=== PATIENT | female | born 1975 | race Caucasian/White ===

== ENCOUNTER 2023-01-12 11:14 | Emergency (ER) | payer OTHER ==
[2023-01-12 11:34] VITALS: BP 134/73; PULSE 58; RESP 18; TEMP 98.4; BMI 28.3
[2023-01-12] MEDS ORDERED: EMTRICITABINE 200MG/TENOFOVIR 300MG PO ONE (12:02)
[2023-01-12] MEDS ORDERED: TETANUS AND DIPHTHERIA TOXOID 0.5 ML DISP.SYRIN IM ONE (12:02)
[2023-01-12] MEDS ORDERED: RALTEGRAVIR POTASSIUM 400 MG TAB PO ONE (12:02)
[2023-01-12] MEDS ORDERED: HIV POST EXPOSURE PROPHYLAXIS KIT PO ONE (12:12)
[2023-01-12] MEDS ORDERED: DIPHTH,PERTUSS(ACELL),TET 0.5 ML DISP.SYRIN IM ONE (12:15)
[2023-01-12 12:22] LABS: BASO % 1.1 % (0-2.0); EOS % 5.8 % (0-4.5); HEMATOCRIT 36.3 % (32.4-45.2); LYMPH % 17.1 % (8-40); MCH 32.5 pg (25.7-33.7); MCHC 35.8 g/dl (32.0-36.0); MEAN CELL VOLUME 90.8 fl (80-96); MEAN PLT VOLUME 8.6 fl (7.5-11.1); MONO % 9.3 % (3.8-10.2); NEUT % 66.7 % (42.8-82.8); PLATELET COUNT 290 10^3/uL (134-434); RDW 13.1 % (11.6-15.6); WHITE BLOOD COUNT 8.3 K/mm3 (4.0-10.0)
[2023-01-12 13:00] LABS: ALBUMIN 3.6 g/dl (3.4-5.0); BLOOD UREA NITROGEN 12.4 mg/dL (7-18)
[2023-01-12 13:02] LABS: URIC ACID 3.8 mg/dL (2.6-7.2)
[2023-01-12 13:03] LABS: CREATININE 0.6 mg/dL (0.55-1.3)
[2023-01-12 13:04] LABS: PHOSPHOROUS 3.7 mg/dL (2.5-4.9); TOT PROT 7.1 g/dl (6.4-8.2)
[2023-01-12 13:06] LABS: BILIRUBIN,TOTAL 0.6 mg/dL (0.2-1)
[2023-01-12 13:54] LABS: HIV INTERPRETATION NEGATIVE (NEGATIVE)
== END 2023-01-12 13:20 | disposition home or self-care (01) ==
LOC: JER 11:14 → JERFT 11:14
DX: S61.031A Puncture wound without foreign body of right thumb without damage to nail, initial encounter (principal); W26.0XXA Contact with knife, initial encounter
CPT/HCPCS: 36415; 80053; 82465; 82977; 83615; 84100; 84478; 84550; 85025; 86704; 86803; 87340; 87389; 87517; 99283-25